=== PATIENT | male | born 1950 | race American Indian/Alaskan Native ===

== ENCOUNTER 2018-01-11 16:18 | Outpatient (CLI) | payer MEDICARE ==
--- NOTE | 2018-01-11 18:52 | XRay Report ---
FINAL REPORT EXAM: XR CHEST ROUTINE 2V HISTORY: R63.4/ABNORMAL WEIGHT LOSS TECHNIQUE: PA and lateral views of the chest PRIORS: None. FINDINGS: Lines, tubes, and devices: N/A Lungs and pleura: Trachea is normal in position. In the right upper lobe anterior laterally, there are 2 rounded lucencies suggesting bulla. Most of the they have a thin wall, however, the inferior bulla has a thicker wall along its caudal margin. In addition, there is an adjacent infiltrate along the caudal margin of these lucencies. Therefore, possibility of infected bulla, pneumatocele, tuberculosis, or neoplasm should be considered. CT of the chest is recommended for further evaluation. Overall, this entire bullous region measures 4.3 x 9.0 x 4.7 cm. Cardiomediastinal silhouette: Cardiac and mediastinal silhouettes are unremarkable. Other: Bony structures demonstrate degenerative spurs anteriorly in the mid to lower thoracic spine IMPRESSION: Several focal clustered lucencies in the right upper lobe anterior laterally with adjacent infiltrate. Differential is broad including infected bulla, pneumatocele, tuberculosis, or neoplasm. CT is recommended for further evaluation.
== END 2018-01-11 16:19 | disposition home or self-care (01) ==
LOC: XRAY 16:18
PROVIDERS: ATTEND Internal Medicine
DX: R63.4 Abnormal weight loss (principal); M53.84 Other specified dorsopathies, thoracic region
CPT/HCPCS: 71046

== ENCOUNTER 2018-01-15 11:26 | Outpatient (CLI) | payer MEDICARE ==
[2018-01-15 12:03] LABS: Blood Urea Nitrogen 10 mg/dL (9-20)
--- NOTE | 2018-01-15 14:43 | Cat Scan Report ---
CT CHEST WITH CONTRAST: HISTORY: Abnormal weight loss, abnormal chest x-ray. COMPARISON: Chest x-ray dated 01/11/18. TECHNIQUE: Helical CT in 1.25mm intervals following IV contrast. Sagittal and coronal reformatted images. FINDINGS: Thyroid gland: Normal. Tracheobronchial tree: Normal. Esophagus: Normal. Heart: Normal. Pericardium: Normal. Mediastinum: There are a few borderline enlarged and mildly enhancing right paratracheal lymph nodes. The largest lymph node measures 2.0 x 1.6 cm in axial plane. Lung Beltran: Mild paraseptal emphysematous changes are suspected in the upper lobes. There are scattered small blebs and bulla in the apical regions. Within the right upper lobe, patchy groundglass infiltrate is also identified. There are also peripherally areas of cystic change containing small fluid levels. This is concerning for an infectious process. This could represent pneumonia although tuberculosis or fungal infection could have a similar appearance. Pleural Spaces: Trace right pleural effusion measures less than 1 cm in thickness. Musculoskeletal: Mild thoracic spondylosis. No fracture or suspicious bony lesion. IMPRESSION: Mild paraseptal emphysematous changes. Right upper lobe infiltration as outlined above. I suspect this is inflammatory in nature. A neoplastic process is thought less likely. Reactive paratracheal lymph nodes.
== END 2018-01-15 11:27 | disposition home or self-care (01) ==
LOC: CT 11:26
PROVIDERS: ATTEND Internal Medicine
DX: J43.9 Emphysema, unspecified (principal); R91.8 Other nonspecific abnormal finding of lung field; M47.894 Other spondylosis, thoracic region; R63.4 Abnormal weight loss
CPT/HCPCS: 36415; 71260; 82565; 84520; Q9967